=== PATIENT | female | born 1975 | race Caucasian/White ===

== ENCOUNTER 2016-09-04 21:27 | Emergency (ER) | payer MEDICAID ==
[~2016-09-04 21:27] MED LIST: ADDERALL 10 MG10 M2 PO; ALPRAZOLAM1 M3 PO; BCP; BLEPH-105 ML OP; CLARITIN10 MG; CLOTRIMAZOLE10 M1 MM; DIFLUCAN200 MG; NORCO 5-325 TA1 EACH PO; NORCO 5/325 TAB1 TAB PO; PROVENTIL HFA6.7 G1 IH; PROZAC20 MG; TRAMADOL HCL50 M2 PO; [UNRECOGNIZED DRUG - OTHER]; [UNRECOGNIZED DRUG - OTHER]
[2016-09-04] MEDS ORDERED: PROVENTIL HFA6.7 G1 INH (21:51)
[2016-09-04] MEDS ORDERED: FEOSOL325 M1 PO (21:56)
[2016-09-04] MEDS ORDERED: IPRAT-ALBUT 0.5-3 ML INH (21:56)
[2016-09-04] MEDS ORDERED: CLARITIN10 M6 PO (21:57)
[2016-09-04] MEDS ORDERED: BUPROPION XL300 M1 PO (21:58)
[2016-09-04 21:59] LABS: BASO % 0.2 % (0-2); EOS % 0.8 % (0-7); EOSINOPHIL ABSOLUTE COUNT 0.1 tho/cmm (0.0-0.7); HCT-HEMATOCRIT 44.5 % (34.0-49.0); IMMATURE GRANULOCYTES ABSOLUTE 0.02 tho/cmm (0-0.03); IMMATURE GRANULOCYTES PERCENT 0.2 % (0-0.3); LYMPH % 32.2 % (20-45); LYMPH ABSOLUTE COUNT 2.7 tho/cmm (0.8-4.5); MCH (MEAN CORPUSCULAR HGB) 32.1 pg (28.0-32.0); MCV (MEAN CELL VOLUME) 89.4 fl (82.0-96.0); MONO % 8.5 % (0-12); MONOCYTE ABSOLUTE COUNT 0.7 tho/cmm (0.0-1.2); NEUTROPHIL ABSOLUTE COUNT 4.9 tho/cmm (1.6-8.0); NEUTROPHIL-AUTOMATED 4.9 tho/cmm (1.6-8.0); NEUTROPHILS % 58.1 % (40-80); PLATELET COUNT 272 tho/cmm (150-450); RED BLOOD COUNT 4.98 mil/cmm (4.00-5.20); RED CELL DISTRIBUTION WIDTH 13.3 % (12.4-16.4); WHITE BLOOD COUNT 8.5 tho/cmm (4.0-10.0)
[2016-09-04] MEDS ORDERED: FLONASE ALLERG9.9 ML (22:00)
[2016-09-04] MEDS ORDERED: SYMBICORT 160-1 PUFF INH (22:01)
[2016-09-04] MEDS ORDERED: [UNRECOGNIZED DRUG - OTHER] (22:02)
[2016-09-04 22:19] LABS: ANION GAP 15 mmol/L (0-20); BLOOD UREA NITROGEN 9 mg/dl (6-24); CALCIUM 9.2 mg/dl (8.5-10.5); CARBON DIOXIDE-VENOUS 21 mmol/L (22-32); CHLORIDE 107 mmol/l (96-110); CREATININE 0.89 mg/dl (0.50-1.10); GLUCOSE 95 mg/dL (70-110); POTASSIUM 3.7 mmol/L (3.7-5.1); SODIUM 139 mmol/L (135-145); eGFR VALUE FOR BLACK >90 mL/Min
== END 2016-09-05 02:10 ==
LOC: EDMED 21:27
PROVIDERS: Emergency Medicine
DX: R07.89 Other chest pain (principal); Z88.8 Allergy status to other drugs, medicaments and biological substances; Z72.0 Tobacco use

== ENCOUNTER 2016-09-25 14:14 | Emergency (ER) | payer MEDICAID ==
[~2016-09-25 14:14] MED LIST changes: +BUPROPION XL300 M1 PO; +CLARITIN10 M6 PO; +FEOSOL325 M1 PO; +FLONASE ALLERG9.9 ML; +IPRAT-ALBUT 0.5-3 ML INH; +PROVENTIL HFA6.7 G1 INH; +SYMBICORT 160-1 PUFF INH; +[UNRECOGNIZED DRUG - OTHER]
[2016-09-25] MEDS ORDERED: OMEPRAZOLE20 M3 PO (14:45)
[2016-09-25] MEDS ORDERED: PREDNISONE10 M1 PO (15:14)
[2016-09-25] MEDS ORDERED: ASTEPRO205.5 MCG/ (15:15)
[2016-09-25 15:16] LABS: BASO % 0.1 % (0-2); EOS % 0.1 % (0-7); HGB-HEMOGLOBIN 16.1 gm/dl (12.0-15.5); IMMATURE GRANULOCYTES ABSOLUTE 0.23 tho/cmm (0-0.03); IMMATURE GRANULOCYTES PERCENT 1.6 % (0-0.3); LYMPH % 12.4 % (20-45); LYMPH ABSOLUTE COUNT 1.8 tho/cmm (0.8-4.5); MCH (MEAN CORPUSCULAR HGB) 32.7 pg (28.0-32.0); MCHC MEAN CORPUSCULAR HGB CONC 35.8 % (32.0-36.0); MCV (MEAN CELL VOLUME) 91.5 fl (82.0-96.0); MEAN PLATELET VOLUME 9.8 cmc (9.4-12.4); MONO % 5.7 % (0-12); MONOCYTE ABSOLUTE COUNT 0.8 tho/cmm (0.0-1.2); NEUTROPHIL ABSOLUTE COUNT 11.4 tho/cmm (1.6-8.0); NEUTROPHIL-AUTOMATED 11.4 tho/cmm (1.6-8.0); NEUTROPHILS % 80.1 % (40-80); PLATELET COUNT 253 tho/cmm (150-450); RED BLOOD COUNT 4.92 mil/cmm (4.00-5.20); RED CELL DISTRIBUTION WIDTH 13.5 % (12.4-16.4); WHITE BLOOD COUNT 14.3 tho/cmm (4.0-10.0)
[2016-09-25 15:25] LABS: ANION GAP 12 mmol/L (0-20); BLOOD UREA NITROGEN 13 mg/dl (6-24); CALCIUM 8.8 mg/dl (8.5-10.5); CARBON DIOXIDE-VENOUS 27 mmol/L (22-32); CHLORIDE 106 mmol/l (96-110); CREATININE 0.94 mg/dl (0.50-1.10); GLUCOSE 119 mg/dL (70-110); POTASSIUM 4.3 mmol/L (3.7-5.1); SODIUM 141 mmol/L (135-145); eGFR VALUE FOR BLACK 87 mL/Min
[2016-09-25 15:35] LABS: URINE APPEARANCE CLEAR; URINE BILIRUBIN NEGATIVE (NEG); URINE BLOOD MODERATE (NEG); URINE COLOR PALE YELLOW; URINE GLUCOSE (UA) NEGATIVE (NEG); URINE KETONE NEGATIVE (NEG); URINE LEUKOCYTE ESTERASE NEGATIVE (NEG); URINE NITRITE NEGATIVE (NEG); URINE PROTEIN NEGATIVE (NEG); URINE SPECIFIC GRAVITY 1.005 (1.003-1.030)
[2016-09-25 15:41] LABS: URINE EPITHELIAL CELLS 0-1 /[HPF] (0-10); URINE RBC 0-2 /[HPF] (0-5); URINE WBC 0 /[HPF] (0-5)
== END 2016-09-25 16:20 ==
LOC: EDMED 14:14
PROVIDERS: Emergency Medicine
DX: M25.50 Pain in unspecified joint (principal); R53.81 Other malaise; F17.210 Nicotine dependence, cigarettes, uncomplicated

== ENCOUNTER 2016-10-10 14:04 | Emergency (ER) | payer MEDICAID ==
[~2016-10-10 14:04] MED LIST changes: +ASTEPRO205.5 MCG/; +OMEPRAZOLE20 M3 PO; +PREDNISONE10 M1 PO
[2016-10-10 15:59] LABS: BASO % 0.1 % (0-2); EOS % 1.9 % (0-7); EOSINOPHIL ABSOLUTE COUNT 0.2 tho/cmm (0.0-0.7); HCT-HEMATOCRIT 45.5 % (34.0-49.0); IMMATURE GRANULOCYTES ABSOLUTE 0.21 tho/cmm (0-0.03); IMMATURE GRANULOCYTES PERCENT 2.2 % (0-0.3); MCHC MEAN CORPUSCULAR HGB CONC 35.2 % (32.0-36.0); MCV (MEAN CELL VOLUME) 93.8 fl (82.0-96.0); MEAN PLATELET VOLUME 9.6 cmc (9.4-12.4); MONO % 8.1 % (0-12); MONOCYTE ABSOLUTE COUNT 0.8 tho/cmm (0.0-1.2); NEUTROPHIL ABSOLUTE COUNT 4.5 tho/cmm (1.6-8.0); NEUTROPHIL-AUTOMATED 4.5 tho/cmm (1.6-8.0); NEUTROPHILS % 46.7 % (40-80); PLATELET COUNT 195 tho/cmm (150-450); RED BLOOD COUNT 4.85 mil/cmm (4.00-5.20); RED CELL DISTRIBUTION WIDTH 13.5 % (12.4-16.4); WHITE BLOOD COUNT 9.7 tho/cmm (4.0-10.0)
[2016-10-10 16:18] LABS: ANION GAP 9 mmol/L (0-20); BLOOD UREA NITROGEN 12 mg/dl (6-24); CALCIUM 8.9 mg/dl (8.5-10.5); CARBON DIOXIDE-VENOUS 33 mmol/L (22-32); CHLORIDE 104 mmol/l (96-110); CREATININE 0.96 mg/dl (0.50-1.10); GLUCOSE 92 mg/dL (70-110); SODIUM 142 mmol/L (135-145); eGFR VALUE FOR BLACK 85 mL/Min
[2016-10-10] MEDS ORDERED: NORCO 5-325 TA1 EACH PO (16:52)
== END 2016-10-10 17:35 ==
LOC: EDMED 14:04
PROVIDERS: Physician Assistant
DX: R22.1 Localized swelling, mass and lump, neck (principal); L65.9 Nonscarring hair loss, unspecified; R53.83 Other fatigue; J45.909 Unspecified asthma, uncomplicated; Z79.51 Long term (current) use of inhaled steroids; F17.210 Nicotine dependence, cigarettes, uncomplicated

== ENCOUNTER 2016-12-04 14:00 | Emergency (ER) | payer MEDICAID ==
[2016-12-04] MEDS ORDERED: WELLBUTRIN XL300 M3 PO (14:33)
[2016-12-04] MEDS ORDERED: [UNRECOGNIZED DRUG - OTHER] (14:34)
[2016-12-04] MEDS ORDERED: VYVANSE60 M1 PO (14:35)
== END 2016-12-04 16:06 ==
LOC: EDMED 14:00
DX: M54.2 Cervicalgia (principal); G89.29 Other chronic pain; F32.9 Major depressive disorder, single episode, unspecified; F41.9 Anxiety disorder, unspecified; F17.200 Nicotine dependence, unspecified, uncomplicated; Z79.899 Other long term (current) drug therapy
CPT/HCPCS: J1885